=== PATIENT | female | born 2005 | race Caucasian/White ===

== ENCOUNTER 2025-08-26 14:09 | Emergency (ER) | payer MEDICAID, SELFPAY ==
[2025-08-26 14:10] VITALS: BMI 19.5
[2025-08-26 14:43] VITALS: BP 111/78; PULSE 82; RESP 16; TEMP 36.9; O2SAT 99
--- NOTE | 2025-08-26 14:48 | EDNOTE_ITS ---
ED OB Contraction Preg RMI/HPI General Chief complaint: Vaginal Bleeding Stated complaint: VAGINAL BLEEDING X30 MINUTES, 10 WKS Time Seen by Provider: 08/26/25 14:47 Arrival date/time: 08/26/25 14:09 RME / HPI RME / HPI Narrative: 19-year-old female who has had 1 live vaginal presents to the ER LMP in May about 10 weeks was seen at a clinic and had a verified blood tested around 4 weeks and was having some intercourse just prior to arrival and noticed some vaginal bleeding which gushing to the toilet. Denies any additional pads since that incident. Denies any abnormal vaginal discharge, dysuria, fever, nausea vomiting. Related Data Home Medications ?Medication ?Instructions ?Recorded ?Confirmed prenat.vits,franklin,[id number] 1 tab PO QDAY 06/26/21 11/29/21 Previous Rx's ?Medication ?Instructions ?Recorded doxycycline hyclate 100 mg capsule 100 mg PO BID #28 c aps 01/21/24 metronidazole 500 mg tablet 500 mg PO BID #28 tabs 04/08 Allergies Allergy/AdvReac Type Severity Reaction Status Date / Time No Known Allergies Allergy Verified 08/26/25 14:10 ED Exam Narrative Physical exam: Constitutional: Patient alert and oriented. Well appearing. No acute distress. Not toxic appearing. Head: Normocephalic, atraumatic. Eyes: Periorbital regions bilaterally normal to inspection. Conjunctiva clear bilaterally. Sclera anicteric bilaterally. Pupils equal, round, reactive to light bilaterally. Extraocular movements intact bilaterally. Mouth/Throat: Mucous membranes moist. No stridor or muffled voice. No trismus. Handling secretions without difficulty. Airway widely patent. Neck: Supple. Trachea midline. No JVD. No nuchal rigidity. Normal range of motion. Respiratory: Normal effort. No accessory muscle use or respiratory distress. Lungs clear to auscultation bilaterally without rhonchi, wheezes, or crackles. Cardiovascular: RRR. Normal S1/S2. No murmurs or rubs. Radial pulses intact bilaterally. Abdomen: Soft. Non-distended. Non-tender throughout. No pulsatile mass. No guarding or rebound. Negative Hernandez?s sign. Negative McBurney?s point tenderness. Negative Rovsing?s. Back: No midline tenderness or step-offs. No CVA tenderness to palpation bilaterally. Upper Extremities: No gross deformities. Lower Extremities: No gross deformities. No edema or calf tenderness. Neuro: Speech normal. No gross motor or sensory deficits to upper or lower extremities bilaterally. GCS 15. CN II?XII grossly intact. Skin: Warm, dry, normal color. Psych: Normal affect. Cooperative. Normal insight. : Deferred Course Quality Measures none Orders Category Date Time Status NPO NOW Care 08/26/25 14:50 Completed Diet NPO (NOW) Diet 08/26/25 14:50 Active US OB <= 14 weeks fetus Stat Exams 08/26/25 14:50 Completed US OB transvaginal Stat Exams 08/26/25 14:50 Completed ABO/RH Type Stat Lab 08/26/25 15:33 Completed Beta HCG,Quantitative Stat Lab 08/26/25 15:33 Completed CBC Stat Lab 08/26/25 15:33 Completed CMP [Comprehensive Metabolic Panel] Stat Lab 08/26/25 15:33 Completed Lipase Stat Lab 08/26/25 15:33 Completed UA, C/S IF [Urinalysis, C/S if Indicated] Stat Lab 08/26/25 17:11 Completed Acetaminophen Tab [Tylenol Tab] Med 08/26/25 14:50 Discontinued 650 mg PO X1 ONE Vital Signs Vital signs: Vital Signs Temperature 98.4 F 08/26/25 14:43 Pulse Rate 82 08/26/25 14:43 Respiratory Rate 16 08/26/25 14:43 Blood Pressure 111/78 08/26/25 14:43 Pulse Oximetry (%) 99 08/26/25 14:43 Oxygen Delivery Method Room Air 08/26/25 14:43 Vaginal Bleeding MDM Narrative MDM Narrative: MDM: This patient is in the first trimester of her and after a careful history, physical exam, and evaluation, is found to be at risk of a miscarriage. The likelihood of an ectopic is extremely low. The patient is instructed to follow-up with an Advertising Sales Consultant within 48-72 hours for re- evaluation. The patient is warned to return to the ED if she develops significant bleeding, dizziness, syncope, or severe pain. Serial abdominal exams benign without peritonitis and patient without significant vaginal bleeding. At the time of reassessment prior to discharge, the patient remains alert and oriented ?3 with GCS 15. Vitals are normal, pain is controlled, and the patient is tolerating oral intake without nausea or vomiting. The patient is agreeable to discharge and verbalizes understanding of the diagnosis, studies, treatment plan, medications (including side effects/precautions), and strict ER return precautions as discussed in the ED. All concerns were addressed, and the patient is comfortable with the plan. Patient data External records reviewed:: [facility] previous records Clinical information provided by:: patient Social determinants that could affect healthcare access:: none Patient has the following chronic illnesses:: As noted How is presenting disease/condition affected by chronic disease/condition?: uneffected by Evaluation data The following diagnostics were reviewed and interpreted by me:: lab results and radiology exam(s) Lab and/or radiology exams considered but not ordered:: Additional Labs and radiology considered, but not ordered as they were not clinically indicated at this time. Interpretation Summary: White blood cell count minimally elevated 14.2, hemoglobin minimally low at 10.9, hematocrit minimally low at 32.5, neutrophil number minimally elevated 10.8, immature granulocyte number minimally elevated 0.05 thousand, BUN minimally low at 7, O positive, [facility] [place] [id number] Ultrasound notes intrauterine with good heart tracing otherwise no acute pelvic abnormality Medications / Prescriptions Medications or Prescriptions considered but not ordered:: I ordered medications based on the patient?s clinical needs and assessment, as documented in the chart. For medications not prescribed, they were not indicated for the patient's current condition, and I determined they were unnecessary at this time to avoid potential risks or complications. Medication administrations:: Medication Administration History Discontinued Medications Acetaminophen (Acetaminophen 325 Mg Tablet) 650 mg PO X1 ONE Stop: 08/26/25 14:51 Last Admin: 08/26/25 15:38 Dose: 650 mg Documented By: MF As noted Consultations Consultation(s) initiated? (list below): No Diagnosis Vaginal Bleeding Differential Diagnosis: threatened , incomplete and ectopic without intrauterine Most likely diagnosis given after review of the tests above:: Threatened Admission Indicated Admission indicated?: not indicated Explain why admission is indicated or not indicated:: Escalation of care including admission/observation considered but I decided to discharge because based on the overall clinical presentation, and after consideration of the patient's course in the emergency department and plan for outpatient management, I believe that neither further observation nor inpatient care is required at this time. Admission Request Was there a request for admission?: No Disposition Plan Disposition Plan: Discharge Discharge Attestation Discharge Attestation: The patient and all family members were given an opportunity to ask questions and understood the discharge instructions. Discharge instructions specifically effects, indications for sooner follow up or return to the emergency department, and the expected course of current diagnosis. Patient condition: Stable Discharge Plan Plan Patient Disposition: HOME (Self Care) Patient condition on transfer: Stable Prescriptions/Referrals Prescriptions/Med Rec: No Action Vitamin Tablet 1 tab PO QDAY doxycycline hyclate 100 mg capsule 100 mg PO BID Qty: 28 0RF metronidazole 500 mg tablet 500 mg PO BID Qty: 28 0RF Referrals: Stuart Herring MD [Primary Care Provider, Family Practice] - In 1 week Problem List Clinical Impression: Threatened Patient/Caregiver Discharge Instructions Education Materials: ED Possible Miscarriage ... Additional Instructions: Follow up with your OBGYN doctor within 48 hours. Return to the Emergency Room immediately for any new, worsening, continuing symptoms or any concerns at all. Return to the Emergency Room within 48 hours if you are unable to follow up with your OBGYN doctor within 48 hours. You are on strict pelvic rest and bedrest. Stay hydrated. Print Language: Mexican Stand Alone Forms: Lluvia Award Info., Patient Portal Info Letter PA/DICER MACHINE OPERATOR Supervising Physician PA/DICER MACHINE OPERATOR Supervising Physician: Dr. Coreas
--- NOTE | 2025-08-26 14:50 | XR_ITS ---
Examination: OB Transvaginal ultrasound of the pelvis, complete Technique: Transvaginal sonographic images pelvis performed using mock scale imaging Exam date and time: 07/2025 at 4:09. P.m. Findings there is a gestational sac seen in good position in the endometrial cavity of the uterus. There are early developing placenta appears to be situated along the anterior and left lateral margins of the gestational sac. Chorioamnionic separation is visible, this is a normal finding there is a single early intrauterine gestation noted, crown rump length of the fetus is 3.6 cm indicating 10-week 3-day gestational age. The gestational sac size is consistent with gestational age of 9 weeks 3 days. heart rates 173 bpm. Both right and left ovaries have a normal size and appearance. IMPRESSION: 1. Normal-appearing early intrauterine gestation. The fetus is viable, normal heart rate 2. Albert Lea-rump length indicates a gestational age of 10 weeks 3 days.
--- NOTE | 2025-08-26 14:50 | XR_ITS ---
Examination: Complete OB ultrasound, less than 14 weeks, transabdominal Date and time of exam: August 26, 2025, 1544 hours INDICATIONS: Vaginal bleeding and pelvic pain onset today Technique: Obstetrical ultrasound images less than 14 weeks performed via transabdominal imaging Findings: A normal shaped single intrauterine gestation is present in the uterus. CRL 3.1 cm corresponds to 7 weeks 0 days gestational age Cardiac motion 167 bpm Ultrasonographic survey of visible and placental structures unremarkable. Amniotic fluid volume appears appropriate for this estimated gestational age. Right ovary 4.1 cm arterial flow Left ovary 3.1 cm arterial flow Mild fluid in the cul-de-sac IMPRESSION: Viable intrauterine gestation 10 weeks 0 days.
[2025-08-26] MEDS: ACETAMINOPHEN 325 MG TABLET 650 MG PO (15:38)
[2025-08-26 15:59] LABS: Basophils # (Auto) 0.1 Thou/mm3 (0.0-0.2); Basophils % (Auto) 0 % (0-2.5); Eosinophils # (Auto) 0.0 Thou/mm3 (0.0-0.5); Eosinophils % (Auto) 0 % (0-10); Hematocrit 32.5 % (36.0-46.0); Hemoglobin 10.9 g/dL (12.0-16.0); Immature Granulocytes Auto 0.05 Thou/mm3 (0.00-0.00); Lymphocytes # (Auto) 2.5 Thou/mm3 (1.0-4.8); Lymphocytes % (Auto) 18 % (10-50); Mean Corpuscular HGB Conc 33.5 g/dl (31.0-37.0); Mean Corpuscular Hemoglobin 28.3 pg (25.0-35.0); Mean Corpuscular Volume 84 fL (80-100); Monocytes # (Auto) 0.8 Thou/mm3 (0.0-0.8); Monocytes % (Auto) 6 % (0-12); Neutrophils # (Auto) 10.8 Thou/mm3 (1.8-7.7); Neutrophils % (Auto) 76 % (37-80); Nucleated Red Blood Cell # 0.00 Thou/mm3 (0.00-0.00); Nucleated Red Blood Cell % 0 /100 WBC (0); Platelet Count 292 Thou/mm3 (140-440); RDW Standard Deviation 46.8 fL (36.4-46.3); Red Blood Count 3.85 Miln/mm3 (4.00-5.20); White Blood Count 14.2 Thou/mm3 (4.5-11.0)
[2025-08-26 16:43] LABS: Alanine Aminotransferase 14 U/L (10-49); Albumin, Serum 4.7 gm/dL (3.5-5.0); Albumin/Globulin Ratio 1.9 (1.2-2.2); Alkaline Phosphatase 56 U/L (46-116); Anion Gap 10 (7-16); Aspartate Amino Transferase 22 U/L (0-34); BUN/Creatinine Ratio 12 Ratio (12-20); Bilirubin,Total 0.6 mg/dL (0.3-1.2); Blood Urea Nitrogen 7 mg/dL (9-23); Calcium 9.6 mg/dL (8.3-10.6); Calcium (Corrected) 9.6 mg/dL (8.5-10.1); Carbon Dioxide 24.5 mMol/L (20.0-31.0); Chloride 106 mMol/L (98-107); Creatinine (Component) 0.6 mg/dL (0.6-1.3); Estimated Creatinine Clearance 117.8 mL/min (>60); Globulin 2.5 gm/dL (2.3-3.5); Glucose 98 mg/dL (74-106); Lipase 30 U/L (12-53); Osmolality,Calculated 277 (275-295); Potassium 4.1 mMol/L (3.4-5.1); Sodium 140 mMol/L (136-145); Total Protein 7.2 gm/dL (5.7-8.2); eGFR > 60 See Note
[2025-08-26 17:18] LABS: Collection Type, Urine Clean Catch
[2025-08-26 17:29] LABS: Bacteria,Urine Rare; Bilirubin,Urine Negative (Negative); Blood,Urine 3+ (Negative); Color,Urine Lt-Yellow (Lt Yel-Yel); Culture Indicated,Urine Not Indicated; Glucose, Urine Negative (Negative); Ketones,Urine Negative (Negative); Leukocyte Esterase,Urine Positive (Negative); Nitrite,Urine Negative (Negative); PH,Urine 6.5 (5.0-7.0); Protein,Urine Negative (Neg - Trace); RBC,Urine 14 /hpf (0-3); Specific Gravity,Urine 1.008 (1.001-1.035); Squamous Epithelial Cell,Urine 4 /hpf (0-5); Urobilinogen,Urine Negative mg/dL (0.0-1.0); WBC,Urine 3 /hpf (0-5)
[2025-08-26 17:55] LABS: Clarity,Urine Hazy (Clear/Hazy)
== END 2025-08-26 17:27 | disposition home or self-care (01) ==
PROVIDERS: Emergency Provider Physician Assistant; PCP Family Medicine
DX: O20.0 Threatened abortion (principal); Z3A.10 10 weeks gestation of pregnancy
CPT/HCPCS: 36415; 76801; 76817; 80053; 81001; 83690; 84702; 85025; 86900; 86901; 99283; A9270